=== PATIENT | female | born 1980 | race Caucasian/White ===

== ENCOUNTER 2017-07-14 00:05 | Emergency (ER) | payer OTHER ==
[2017-07-14 00:16] VITALS: BP 138/101
--- NOTE | 2017-07-14 00:20 | ED ---
Janna Hernandez Rebecca, scribed for Jj Patel MD on 07/14/17 at 0016 . Medical Screening - HPI Summary HPI Summary: Pt is a 37 y/o F who presents to ED 39 weeks c/o lower abdominal pain s /p water breaking. Pt reports that her water broke at approximately 2300 and has been experiencing intermittent lower abdominal pressure since then. Pain is currently moderate, ranked 6/10. She is visiting the area from [place], [place] where she was planning on giving . She has had no problems with the thus far. A0 - History of Current Complaint Chief Complaint: EDOBProblems Stated Complaint: 39 WKS PREG/POSSIBLE LABOR Time Seen by Provider: 07/14/17 00:11 Onset/Duration: Still Present Severity: moderate - 6/10 Associated Signs and Symptoms: Other - s/p water breaking, c/o abdominal pain PMH/Surg Hx/FS Hx/Imm Hx Cardiovascular History: Denies: Hx Coronary Artery Disease Respiratory History: Denies: Hx Asthma Infectious Disease History: Denies: Traveled Outside the in Last 30 Days - Family History Known Family History: Positive: Respiratory Disease - Asthma - brother - Social History Alcohol Use: None Substance Use Type: Reports: None Smoking Status (MU): Never Smoked Tobacco Review of Systems Positive: Abdominal Pain - Lower abdominal pressure Positive: other - Water broke immediately [employer] REPA[employer]ER All Other Systems Reviewed And Are Negative: Yes Physical Exam Triage Information Reviewed: Yes Vital Signs Reviewed: Yes Appearance: Positive: Well-Appearing Skin: Positive: Warm Head/Face: Positive: Normal Head/Face Inspection Eyes: Positive: YOUSIF Respiratory/Lung Sounds: Positive: Breath Sounds Present Cardiovascular: Positive: RRR Abdomen Description: Positive: Soft, Other: - gravid Diagnostics - Laboratory Result Diagrams: 07/14/17 00:29 07/14/17 00:29 Lab Statement: Any lab studies that have been ordered have been reviewed, and results considered in the medical decision making process. Course/Dx - Course Assessment/Plan: Pt is a 37 y/o F who presents to ED 39 weeks c/o lower abdominal pain s/p water breaking. Pt reports that her water broke at approximately 2300 and has been experiencing intermittent lower abdominal pressure since then. Pain is currently moderate, ranked 6/10. She is visiting the area from [place], [place] where she was planning on giving . She has had no problems with the thus far. A0. Discussed care of pt with Dr. Andrew Ruiz who accepts pt for transfer to OB. Pt will be transferred to OB with a Dx of labor. She understands and agrees. - Diagnoses Provider Diagnoses: Labor - Physician Notifications Discussed Care Of Patient With: Andrew Ruiz Time Discussed With Above Provider: 00:23 Instructed by Provider To: Other - Accepts pt for transfer to OB. Discharge - Discharge Plan Condition: Stable Disposition: TRANSFER TO OB ([facility]) Referrals: No Primary Care Phys,NOPCP [Primary Care Provider] - The documentation as recorded by the Janna sharif Rebecca accurately reflects the service I personally performed and the decisions made by me, Jj Patel MD.
[2017-07-14 00:41] LABS: Hematocrit 35 % (35-47); Hemoglobin 11.6 g/dl (12.0-16.0); Mean Corpuscular HGB Conc 34 g/dl (31-36); Mean Corpuscular Hemoglobin 30 pg (27-31); Mean Corpuscular Volume 90 fL (80-97); Mean Platelet Volume 9 um3 (7.4-10.4); Red Blood Count 3.87 10^6/ul (4.0-5.4); Red Cell Distribution Width 14 % (10.5-15); White Blood Count 12.2 10^3/ul (3.5-10.8)
[2017-07-14 00:55] LABS: ALT 13 U/L (7-52); Albumin 3.3 g/dL (3.2-5.2); Alkaline Phosphatase 119 U/L (34-104); BUN/Creatinine Ratio 16.9 (8-20); Blood Urea Nitrogen 11 mg/dL (6-24); CO2 Carbon Dioxide 21 mmol/L (22-32); Calcium 9.1 mg/dL (8.6-10.3); Chloride 102 mmol/L (101-111); EGFR African American 133.4 (>60); EGFR Non-African American 103.7 (>60); Globulin 3.7 g/dL (2-4); Glucose 81 mg/dL (70-100); Sodium 131 mmol/L (133-145)
[2017-07-14 00:59] LABS: Anion Gap 8 mmol/L (2-11)
== END 2017-07-14 00:30 | disposition other institution (70) ==
LOC: ED 00:05
DX: Z34.93 Encounter for supervision of normal pregnancy, unspecified, third trimester (principal); Z3A.39 39 weeks gestation of pregnancy
CPT/HCPCS: 36415; 80053; 85025; 99282

== ENCOUNTER 2017-07-14 00:22 | Inpatient (IN) | payer OTHER ==
[2017-07-14 01:17] LABS: ROM Internal QC QC Line Present
[2017-07-14] MEDS ORDERED: OBEPIDURAL* 0 ML ONE (06:02)
[2017-07-14] MEDS ORDERED: fentaNYL* 50 MCG/ML 2 ML VIAL (100 MCG VIAL) ONE (06:08)
[2017-07-14] MEDS ORDERED: Sodium Citrate/Citric Acid* 15 ML UDC PO PRN (06:55)
[2017-07-14] MEDS ORDERED: EPHEDrine (Pressors)* 50 MG/ML VIAL IV PUSH PRN (06:55)
[2017-07-14] MEDS ORDERED: Phenylephrine IV* 40 MCG/ML 10 ML SYRINGE IV PUSH PRN ×2 (06:55)
[2017-07-14] MEDS ORDERED: Famotidine TAB* 20 MG PO PRN (06:55)
[2017-07-14] MEDS ORDERED: Lidocaine 1% MPF wEPI 200,000* 30 ML SDV ONE (07:00)
[2017-07-14] MEDS ORDERED: Sodium Citrate/Citric Acid* 15 ML UDC ONE (07:10)
[2017-07-14] MEDS ORDERED: EPHEDrine (Pressors)* 50 MG/ML VIAL ONE (07:10)
[2017-07-14] MEDS ORDERED: ceFOXitin 2 GM IVPREMIX* 2 GM/50 ML BAG IVPB ONE (07:10)
[2017-07-14] MEDS ORDERED: ceFOXitin 2 GM IVPREMIX* 2 GM/50 ML BAG ONE (07:11)
[2017-07-14] MEDS ORDERED: Sodium Citrate/Citric Acid* 15 ML UDC PO ONE (07:11)
[2017-07-14] MEDS ORDERED: Sterile Water for Inj* 10 ML ONE (07:14)
[2017-07-14] MEDS ORDERED: Morphine PF AMP (0.5MG/ML)* 5 MG/10 ML AMP ONE (07:25)
[2017-07-14] MEDS ORDERED: Propofol* 10 MG/ML 20 ML BTL IV PUSH ONE (07:44)
[2017-07-14] MEDS ORDERED: Lidocaine 2% PF * 5 ML VIAL ONE (07:44)
[2017-07-14] MEDS ORDERED: OXYTOCIN* 10 UNITS/ML 1 ML VIAL ONE (08:27)
[2017-07-14] MEDS ORDERED: Glycerin ADULT SUPP PR PRN (08:28)
[2017-07-14] MEDS ORDERED: Acetaminophen TAB* 325 MG PO PRN (08:28)
[2017-07-14] MEDS ORDERED: Dibucaine 1% 28.35 GM TUBE PR PRN (08:28)
[2017-07-14] MEDS ORDERED: Witch Hazel PAD* JAR TOPICAL PRN (08:28)
[2017-07-14] MEDS ORDERED: oxyCODONE/Acetamin 5/325 MG* TAB PO PRN ×2 (08:28→08:52)
[2017-07-14] MEDS ORDERED: Zolpidem TAB* 5 MG PO PRN (08:28)
[2017-07-14] MEDS: Simethicone CHEW TAB* 80 MG PO SCH ×4 (08:30→21:12)
[2017-07-14] MEDS ORDERED: Ketorolac INJ* 30 MG/ML 1 ML VIAL IV PRN (08:52)
[2017-07-14] MEDS ORDERED: Naloxone* 0.4 MG/ML 1 ML VIAL IV PRN (08:52)
[2017-07-14] MEDS ORDERED: diPHENhydraMINE IV* 50 MG/ML 1 ml VIAL (BENADRYL) IV PRN (08:52)
[2017-07-14] MEDS ORDERED: Oxytocin in LR* 20 UNITS/1,000 ML BAG IVPB ONE (08:55)
[2017-07-14] MEDS ORDERED: DiMENhydriNATE IV* 50 MG/ML VIAL IV PUSH PRN (08:58)
[2017-07-14] MEDS ORDERED: fentaNYL* 50 MCG/ML 2 ML VIAL (100 MCG VIAL) IV PRN (08:58)
[2017-07-14] MEDS: Docusate CAP* 100 MG PO SCH ×3 (09:00→21:12)
[2017-07-14] MEDS: Ibuprofen TAB* 600 MG PO PRN ×3 (12:35→23:55)
[2017-07-14] MEDS: Levothyroxine TAB* 50 MCG TAB PO SCH (12:35)
--- NOTE | 2017-07-14 15:16 | OP ---
OPERATIVE REPORT: DATE OF SURGERY: 07/14/17 DATE OF : 84 SURGEON: Andrew Ruiz MD. TMD TEACHER: Kathie Pickens, certified ophthalmic assistant. ANESTHESIOLOGIST: Nick Royal MD ANESTHETIC: Spinal. PRE-OP DIAGNOSIS: Arrest of descent in labor at 38 weeks gestational age. POST-OP DIAGNOSIS: Arrest of descent in labor at 38 weeks gestational age. PROCEDURE: Primary low transverse section. ESTIMATED BLOOD LOSS: 600 cc. FLUIDS: She received 2 L of IV crystalloid fluid. URINE OUTPUT: 100 cc of clear urine. SPECIMEN: Sent to pathology was cord blood. FINDINGS: On delivery was that of a viable male infant over clear fluid, weighing 8 pounds 3 ounces with Apgars of 9 and 9. The placenta was grossly intact with a 3- vessel cord noted. The uterus, adnexa, bowel, and bladder were within normal limits and there were no complications during this pro cedure. DESCRIPTION OF PROCEDURE: The patient was taken to the operating room where she was identified. Sh e was placed on the operating table where a spinal anesthetic was obtained without difficulty. She was then placed in the supine position with a leftward tilt, prepped and draped in a normal sterile fashion. A Pfannenstiel skin incision was then made with a knife. The fascia was nicked in the mid line and then extended laterally with curved Hernandez scissors. The fascia was then grasped superiorly and inferiorly with Derick clamps and dissected off sharply from the rectus muscle. The rectus musc le was in the midline bluntly. The peritoneum was identified, grasped with pick-ups, ente red sharply with Metzenbaum scissors and extended superiorly and inferiorly sharply. A bladder blad e was inserted into the patient's abdomen. A low transverse uterine incision was made with a knife at about 4 cm above the bladder flap. The uterine incision was extended laterally with bandage scis sors. The infant's head was then grasped and delivered atraumatically. The nose and mouth were suc tioned after the head was delivered. The rest of the 's body was then delivered. The cord wa s clamped and cut and the infant was handed off to a waiting cane piler. Cord bloods were obtaine d. The placenta was removed manually. The uterus was then exteriorized, cleared of all clot and de bris using moist laparotomy sponges. The uterine incision was then closed using 0 Polysorb suture i n a running locked fashion with a second imbricating layer of 0 Polysorb suture. At this point, the uterus was returned to the patient's abdomen. The gutters were then cleared of all clot and debris using moist laparotomy sponges and irrigation fluid. The fluid was suctioned. Sponges were remove d from the patient's abdomen. The uterine incision was noted to be hemostatic. At this point, I pr oceeded to close the peritoneum with 3-0 Polysorb suture. The fascia was closed with 0 Polysorb sut ure in a running fashion. The skin was then closed with 4-0 Monocryl subcuticular stitch. The patie nt tolerated the procedure well. Sponge, lap, and needle counts were correct x2. She was then sawyer sferred to the recovery room area in stable condition. [id number]/[facility] #: [id number]
[2017-07-15] MEDS: oxyCODONE/Acetamin 5/325 MG* TAB PO PRN ×4 (04:17→23:40)
[2017-07-15] MEDS: Ibuprofen TAB* 600 MG PO PRN ×3 (06:41→19:49)
[2017-07-15 07:05] LABS: Hematocrit 31 % (35-47); Hemoglobin 10.3 g/dl (12.0-16.0); Mean Corpuscular HGB Conc 34 g/dl (31-36); Mean Corpuscular Hemoglobin 30 pg (27-31); Mean Corpuscular Volume 90 fL (80-97); Mean Platelet Volume 10 um3 (7.4-10.4); Red Blood Count 3.42 10^6/ul (4.0-5.4); Red Cell Distribution Width 14 % (10.5-15); White Blood Count 11.4 10^3/ul (3.5-10.8)
[2017-07-15] MEDS: Levothyroxine TAB* 50 MCG TAB PO SCH (08:04)
[2017-07-15] MEDS ORDERED: Ferrous Gluconate TAB* 324 MG TAB PO SCH (09:00)
[2017-07-15] MEDS: Simethicone CHEW TAB* 80 MG PO SCH ×4 (09:29→20:21)
[2017-07-15] MEDS: Docusate CAP* 100 MG PO SCH ×3 (09:29→20:21)
--- NOTE | 2017-07-15 23:04 | PTEDU ---
Patient Name: YULIANA FRANCO SALVADORYULIANA HENNESSY selected video: Follow Me Mum: The Marie to Successful to view on 07/15/20 at 11:02:07 PM [email or web address]
[2017-07-16] MEDS: Ibuprofen TAB* 600 MG PO PRN ×4 (02:37→23:36)
[2017-07-16] MEDS: oxyCODONE/Acetamin 5/325 MG* TAB PO PRN ×2 (03:50→21:28)
[2017-07-16] MEDS: Levothyroxine TAB* 50 MCG TAB PO SCH (06:18)
[2017-07-16] MEDS: Docusate CAP* 100 MG PO SCH ×3 (08:52→21:28)
[2017-07-16] MEDS: Simethicone CHEW TAB* 80 MG PO SCH ×4 (08:52→21:28)
[2017-07-17] MEDS: oxyCODONE/Acetamin 5/325 MG* TAB PO PRN ×4 (01:08→17:43)
[2017-07-17] MEDS: Levothyroxine TAB* 50 MCG TAB PO SCH (06:26)
[2017-07-17] MEDS: Ibuprofen TAB* 600 MG PO PRN ×2 (06:26→12:45)
[2017-07-17 08:04] VITALS: BP 122/74
--- NOTE | 2017-07-17 08:08 | PTEDU ---
Patient Name: YULIANA FRANCO YULIANA FRANCO selected video: Never Ever Shake a Baby to view on 07/17/2017 at 8:07:[address] [id number]
--- NOTE | 2017-07-17 08:22 | PTEDU ---
Patient Name: YULIANA FRANCO YULIANA FRANCO selected video: BBOB: Bonding Through Massage to view on 07/17/2017 at 8:21:18 AM [email or web address]
[2017-07-17] MEDS: Docusate CAP* 100 MG PO SCH ×2 (09:21→17:41)
[2017-07-17] MEDS: Simethicone CHEW TAB* 80 MG PO SCH ×3 (09:21→17:44)
--- NOTE | 2017-07-17 10:10 | PTEDU ---
Patient Name: YULIANA FRANCO YULIANA FRANCO selected video: BBOB: Bonding Through Massage to view on 07/17/2017 at 10:08:31 [email or web address]
== END 2017-07-17 19:25 | disposition home or self-care (01) | DRG 540 ==
LOC: MCHOBOUT 00:22 → MCHOB 01:37
PROVIDERS: ADMIT Obstetrics & Gynecology; ATTEND Obstetrics & Gynecology
PROC: 10D00Z1 Extraction of Products of Conception, Low, Open Approach (ICD-10-PCS; principal; 2017-07-14 07:18)
DX: O32.4XX0 Maternal care for high head at term, not applicable or unspecified (principal); E66.9 Obesity, unspecified; E03.9 Hypothyroidism, unspecified; O99.284 Endocrine, nutritional and metabolic diseases complicating childbirth; O99.214 Obesity complicating childbirth; Z68.37 Body mass index [BMI] 37.0-37.9, adult; Z3A.38 38 weeks gestation of pregnancy; Z37.0 Single live birth
CPT/HCPCS: 36415; 84112; 85025; 99282; A9270-GY; J0694; J2001; J2590; J2704; J3010